=== PATIENT | female | born 1980 | race Caucasian/White ===

== ENCOUNTER 2024-02-06 17:47 | Emergency (ER) | payer MEDICAID, OTHER ==
[~2024-02-06 17:47] MED LIST: Iopamidol 370 76% 100 ML VIAL ONE
[2024-02-06] MEDS ORDERED: Sodium Chloride 0.9% 1,000 ML ONE (18:48)
[2024-02-06] MEDS ORDERED: Ondansetron PF 4 MG/2 ML Vial ONE (18:48)
[2024-02-06 19:15] LABS: INR-International Normal Ratio 1.1; Prothrombin Time 14.2 sec (12.0-14.7)
[2024-02-06 19:16] LABS: BHCG - Serum Negative (NEGATIVE); PTT 37.3 sec (22.9-36.1); Pregs Control Background? CLEAR/WHITE (CLR/WHITE); Pregs Control Bar Appear? YES (CONTROL BAR)
[2024-02-06 19:19] LABS: Bilirubin Negative (Negative); Blood, Urine Negative (Negative); Clarity Clear (Clear); Glucose, Urine (Dipstick) Negative (Negative); Ketone, Urine Negative (Negative); Leukocyte Negative (Negative); Nitrite Negative (Negative); Protein, Urine (Dipstick) Negative (Neg-Trace); Urobilinogen 0.2 mg/dL (Less than 2)
[2024-02-06 19:20] LABS: #Basophils 0.1 thou/uL (0.0-0.2); #Eosinphils 0.2 thou/uL (0.0-0.7); #Lymphocytes 2.5 thou/uL (1.20-3.40); #Monocytes 0.5 thou/uL (0.11-0.59); #Neutrophils 6.7 thou/uL (1.40-6.50); %Basophils 0.8 % (0.0-1.0); %Eosinophils 1.6 % (0.0-10.0); %Lymphocytes 25.2 % (21.0-51.0); %Monocytes 4.6 % (0.0-10.0); %Neutrophils 67.8 % (42.0-75.0); Hematocrit 40.8 % (36.0-47.0); Hemoglobin 13.4 g/dL (12.0-16.0); Mean Corpuscular HGB CONC 32.8 g/dL (32.0-36.0); Mean Corpuscular Hemoglobin 34.1 pg (27.0-31.0); Mean Corpuscular Volume 103.9 fl (78.0-98.0); Mean Platelet Volume 7.7 fL (7.4-10.4); Platelet Count 158 10x3/uL (130-400); RBC Distribution Width 11.5 % (11.5-14.5); Red Blood Cell (RBC) Count 3.93 mill/uL (4.20-5.40); White Blood Cell (WBC) Count 9.9 10x3/uL (4.8-10.8)
[2024-02-06 19:23] LABS: Amphetamine Not Detected (NotDetected); Barbiturates Screen Not Detected (NotDetected); Benzodiazepine Screen Not Detected (NotDetected); Cocaine Metabolite Screen Not Detected (NotDetected); Methadone Not Detected (NotDetected); Methamphetamine Not Detected (NotDetected); Opiate Screen Not Detected (NotDetected); Oxycodone Screen Not Detected (NotDetected); Phencyclidine (PCP) Not Detected (NotDetected); THC/Cannabinoid Screen Not Detected (NotDetected); Tricyclic Screen Not Detected (NotDetected)
[2024-02-06 19:26] LABS: ALT (SGPT) 123 U/L (8-55); AST (SGOT) 222 U/L (5-34); Albumin 4.8 g/dL (3.5-5.0); Alcohol 250.9 mg/dL (Less than 10); Alkaline Phosphatase 196 U/L (40-110); Anion Gap 23 mmol/L (10-20); BUN (Urea Nitrogen) 5 mg/dL (7.0-18.7); Bilirubin, Total 1.4 mg/dL (0.2-1.2); Calc. Creatinine Clearance 0 mL/min (70-130); Calcium 9.6 mg/dL (7.8-10.44); Carbon Dioxide 16 mmol/L (22-29); Chloride 100 mmol/L (98-107); Estimated GFR 103; Globulin 3.8 g/dL (2.4-3.5); Glucose 77 mg/dL (70-105); Lipase 26 U/L (8-78); Potassium 3.6 mmol/L (3.5-5.1); Protein, Total 8.6 g/dL (6.0-8.3); Sodium 135 mmol/L (136-145)
[2024-02-06 19:27] LABS: Acetaminophen Less than 10 mcg/mL (10.0-30.0); Alcohol 249.4 mg/dL (Less than 10); Salicylate Less than 8.0 mg/dL (15.0-30.0); Troponin I Less than 0.010 ng/mL (< 0.028)
[2024-02-06 19:28] LABS: Bacteria/HPF Rare-Few HPF (None Seen); CAUTI Indications for Culture Dysuria,urgency,freq; Mucous/LPF Few LPF (<2+); RBC/HPF None Seen HPF (0-3); Specific Gravity, Urine 1.004 (1.002-1.036); Squamous Epithelial 0-3 HPF (0-3); Urine Culture Reflex No No; WBC/HPF 0-3 HPF (0-3)
== END 2024-02-06 19:45 | disposition home or self-care (01) ==
LOC: MADERS 17:47
DX: K70.30 Alcoholic cirrhosis of liver without ascites (principal); F10.129 Alcohol abuse with intoxication, unspecified; F17.210 Nicotine dependence, cigarettes, uncomplicated
CPT/HCPCS: 36415; 74177; 80053; 80306; 80307; 81001; 82274; 83690; 84484; 84703; 85025; 85610; 85730; 93005; 96361; 96374; J2405; J7050; Q9967